=== PATIENT | male | born 1955 | race Caucasian/White ===

== ENCOUNTER 2022-03-31 09:35 | Emergency (ER) | payer MEDICARE ==
[2022-03-31] MEDS ORDERED: Acetaminophen 325 MG Tab PO ONE (09:53)
[2022-03-31] MEDS ORDERED: Diphtheria,Pertussis(Acell),Tetanus Vaccine 0.5 ML Syringe IM ONE (09:54)
[2022-03-31] MEDS ORDERED: Bacitracin Oint 15 GM Tube TOP ONE (11:57)
== END 2022-03-31 12:22 | disposition home or self-care (01) ==
LOC: JD.ED 09:35
DX: S01.01XA Laceration without foreign body of scalp, initial encounter (principal); M25.511 Pain in right shoulder; I10 Essential (primary) hypertension; E11.9 Type 2 diabetes mellitus without complications; W00.0XXA Fall on same level due to ice and snow, initial encounter; Y93.01 Activity, walking, marching and hiking
CPT/HCPCS: 12002; 70450; 73030; 90471; 90715; 99284; A9270; 99282

== ENCOUNTER 2022-04-09 10:55 | Emergency (ER) | payer MEDICARE | END 2022-04-09 11:08 | disposition home or self-care (01) | LOC: JD.ED 10:55 | DX: S01.01XD Laceration without foreign body of scalp, subsequent encounter (principal); Z48.02 Encounter for removal of sutures; W00.0XXD Fall on same level due to ice and snow, subsequent encounter | CPT/HCPCS: 99281 ==